=== PATIENT | male | born 1965 | race Caucasian/White ===

== ENCOUNTER → 2016-12-20 | Outpatient (CLI) | payer OTHER ==
--- NOTE | 2016-12-20 14:47 | XR ---
EXAMINATION TYPE: XR KUB DATE OF EXAM: 12/20/2016 2:35 PM CLINICAL HISTORY: Right-sided pain for 7 days. TECHNIQUE: Single supine KUB image of the abdomen is obtained. COMPARISON: None. FINDINGS: Scattered gas is seen in non-distended small bowel loops. Gas and fecal material is seen in non-distended colon. The amount of fecal material is prominent in the cecum and right colon. There i s no suspicious calcification appreciated. The lung bases are not included. The visualized osseous st ructures are intact. Entire pelvis is not included. Slight levoconvex scoliotic curvature is present. IMPRESSION: Overall nonobstructive bowel gas pattern. Suspect moderate proximal colonic fecal stasis.
== END ==
LOC: RADXRMAIN 14:21
PROVIDERS: ATTEND Internal Medicine
DX: R10.9 Unspecified abdominal pain (principal)
CPT/HCPCS: 74000

== ENCOUNTER → 2016-12-31 | Outpatient (CLI) | payer BC ==
--- NOTE | 2016-12-31 10:15 | CT ---
EXAMINATION TYPE: CT abdomen pelvis wo con DATE OF EXAM: 12/31/2016 COMPARISON: NONE HISTORY: Rt flank pain CT DLP: 561.9 mGycm Examination of the solid and hollow viscera is limited given the lack of contrast. FINDINGS: LUNG BASES: No evidence for nodule. No evidence for infiltrate. LIVER/GB: The gallbladder is unremarkable. No space-occupying hepatic lesion. PANCREAS: No pancreatic mass identified. No inflammatory process seen. SPLEEN: No evidence for splenomegaly. No intrasplenic lesions seen. ADRENALS: No adrenal nodules identified. No evidence for thickening. KIDNEYS: No evidence for renal mass. 2 mm nonobstructing calculus upper pole right kidney as well as a 8.5 mm nonobstructing calculus mid pole left kidney. No hydronephrosis. Urinary bladder not ideally distended at this time. BOWEL: Appendix has a normal appearance. No evidence of bowel obstruction. No inflammatory process. Lymph nodes: No evidence for adenopathy greater than 1 cm. Abdominal aorta: Atheromatous changes seen. No evidence for aneurysm. Genital organs: No significant abnormality. Other: No significant abnormality. IMPRESSION: NONOBSTRUCTING BILATERAL NEPHROLITHIASIS.
== END | disposition home or self-care (01) ==
LOC: RADCTMAIN 09:46
PROVIDERS: ATTEND Internal Medicine
DX: N20.0 Calculus of kidney (principal)
CPT/HCPCS: 74176

== ENCOUNTER 2018-07-17 07:54 | Day surgery (SDC) | payer BC ==
[2018-07-13 13:22] VITALS: BMI 31.0
[~2018-07-17 07:54] MED LIST: LACTATED RINGERS 1,000 ML IV SCH
[2018-07-17] MEDS ORDERED: LACTATED RINGERS 1,000 ML IV ONE (08:46)
[2018-07-17 08:47] VITALS: RESP 18; TEMP 97.2
[2018-07-17] MEDS ORDERED: LIDOCAINE 1% 20 ML VIAL (10MG/ML) FOR IV START INTRADERMA ONE (08:47)
[2018-07-17] MEDS ORDERED: PROPOFOL 10 MG/ML 20 ML VIAL IV ONE (09:53)
--- NOTE | 2018-07-17 10:23 | P.PCN ---
Date of Procedure: 07/17/18 Procedure(s) Performed: Procedure: Colonoscopy and biopsy. Preoperative diagnosis: Screening for neoplasia, patient has history of polyps. Postoperative diagnosis: 1. Sigmoid diverticulosis with no evidence of acute diverticulitis or strictures. 2. Diminutive polyp in the distal sigmoid biopsied but no large polyps or cancer. Preparation: HalfLytely prep. Sedation: Was provided by anesthesia. Brief clinical history: The patient is a 53-year-old male who is scheduled for this evaluation for screening for neoplasia age being his risk factor in addition to history of polyps. His last exam was 5 years ago. The patient has no abdominal complaints, bleeding or anemia. Procedure: With the patient on his left lateral decubitus position and after informed consent and adequate sedation, the perianal area was inspected and it did not show any fissures or fistulas. There were no masses felt on digital rectal examination. The Olympus CFH 190L video colonoscope was then inserted in the rectum in the usual fashion and advanced to the cecum. The mucosa appeared healthy. There was a diminutive polyp in the distal sigmoid which was biopsied but no large polyps or cancer. Several diverticular orifices were seen scattered in the sigmoid with no evidence of acute diverticulitis or strictures. I retroflexed the endoscope in the rectum before the endoscope was withdrawn. The patient tolerated the procedure well. Plan: The patient was reassured. Discussed dietary measures. He will follow up with you as planned and I recommended repeat exam in 5 years.
[2018-07-17 10:48] VITALS: BP 130/87; PULSE 81
== END 2018-07-17 11:18 | disposition home or self-care (01) ==
LOC: ORWHC2ENDO 07:54
DX: Z12.11 Encounter for screening for malignant neoplasm of colon (principal); K63.5 Polyp of colon; K57.30 Diverticulosis of large intestine without perforation or abscess without bleeding; Z86.010 Personal history of colon polyps; K21.9 Gastro-esophageal reflux disease without esophagitis; E78.5 Hyperlipidemia, unspecified; Z79.891 Long term (current) use of opiate analgesic; Z79.899 Other long term (current) drug therapy; Z88.6 Allergy status to analgesic agent
CPT/HCPCS: 88305; 45380; J2704

== ENCOUNTER → 2020-02-06 | Outpatient (CLI) | payer BC ==
--- NOTE | 2020-02-07 09:48 | MR ---
EXAMINATION TYPE: MR knee RT wo con DATE OF EXAM: 02/06/2020 COMPARISON: None HISTORY: Rt knee pain TECHNIQUE: Multiplanar, multisequence imaging of the right knee is performed without IV contrast. FINDINGS: MEDIAL MENISCUS: There is increased linear signal within the inferior aspect posterior horn medial me niscus compatible with a tear. This appears complex. Anterior and this appears intact. LATERAL MENISCUS: Anterior and posterior horns are intact without tear. CRUCIATE LIGAMENTS: The anterior and posterior cruciate ligaments are intact and unremarkable. COLLATERAL LIGAMENTS: Medial collateral ligament has increased signal present compatible with strain. This is greater along the posterior lateral portion. Lateral collateral ligament appears intact. EXTENSOR MECHANISM: Visualized quadriceps and patellar tendons are intact. There is fluid within the pretibial space anterior to the patellar tendon. EFFUSION: Minimal joint fluid is present. POPLITEAL CYST: No popliteal/garcia cyst. TRICOMPARTMENT SPACES: Joint spaces are preserved CARTILAGE: Cartilage appears intact. BONE MARROW SIGNAL: There is increased signal within the posterior medial tibial plateau compatible w ith contusion. OTHER: No additional significant abnormality is appreciated. IMPRESSION: 1. Contusion of the posterior medial tibial plateau. 2. There is strain of the medial collateral ligament with some tendinosis suspected of the lateral aguirre mstring tendons, likely the gracilus. 3. Complex tear posterior horn medial meniscus. 4. Fluid in the subcutaneous tissues anterior to the patellar tendon. Hematoma or bursitis could be c onsidered.
== END | disposition home or self-care (01) ==
LOC: RADMRIMAIN 11:33
PROVIDERS: ATTEND Orthopaedic Surgery
DX: S83.241A Other tear of medial meniscus, current injury, right knee, initial encounter (principal); S80.01XA Contusion of right knee, initial encounter

== ENCOUNTER 2020-05-02 09:23 | Day surgery (SDC) | payer BC ==
[2020-04-30 16:07] VITALS: BMI 32.1
--- NOTE | 2020-05-01 10:29 | HP ---
HISTORY AND PHYSICAL CHIEF COMPLAINT: Right knee pain. 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 He twisted it. He continues to have locking and giving way. He has tried medications in addition to an injection with minimal relief. He notes daily symptoms. PAST MEDICAL HISTORY: Significant for hypercholesterolemia and reflux disease. PAST SURGICAL HISTORY: Negative. CURRENT MEDICATIONS: Atorvastatin, ibuprofen, lansoprazole and [place]. He denies drug allergies. FAMILY HISTORY: Significant for cancer. SOCIAL HISTORY: Significant for previous tobacco use. 16 POINT REVIEW OF SYSTEMS: Otherwise is reviewed and is noncontributory. PHYSICAL EXAMINATION: On examination, the patient is approximately 5 foot 7, 198 pounds of mesomorphic habitus. HEENT: Exam is nonfocal. NECK: Supple. He has painless passive motion of the right hip. Straight leg raise is negative. Active motion right knee -6 to 125 degrees of flexion. He has mild effusion. He is tender about the medial patellar facet and medial joint line. Collaterals are stable, Juanis is negative, Debbie's elicits medial pain. His distal neurovascular exam appears intact in the right lower extremity. MRI report right knee 02/06/2020 shows evidence of a posterior horn medial meniscal tear. IMPRESSION: Internal derangement, right knee with symptomatic medial meniscal tear. RECOMMENDATIONS: I talked to the patient at length regarding his condition and treatment options. At this point, he is having persistent pain and mechanical symptoms after this acute injury despite conservative treatment. After thorough discussion, he opts to proceed with surgery. We will plan to proceed with arthroscopic evaluation with probable partial medial meniscectomy. We will likely perform that as an outpatient procedure. Risks and benefits were discussed at length in layman's terms. MMODL / IJN: [id number] /
[~2020-05-02 09:23] MED LIST changes: +DEXAMETHASONE SOD PHOSPHATE 4 MG/ML 1 ML VIAL IV ONE; +MIDAZOLAM 2 MG/2 ML VIAL IV PRN; +ONDANSETRON 4 MG/2 ML VIAL IVP ONE; +SCOPOLAMINE 1.5MG/72HR PATCH TRANSDERM ONE
[2020-05-02] MEDS ORDERED: LIDOCAINE 1% (10MG/ML) FOR IV START INTRADERMA ONE (09:50)
[2020-05-02] MEDS ORDERED: PHENYLEPHRINE-0.9% NACL SYG 1 MG/10 ML SYRINGE ONE (09:57)
[2020-05-02] MEDS ORDERED: PROPOFOL 10 MG/ML 20 ML VIAL IV ONE (09:57)
[2020-05-02] MEDS ORDERED: MIDAZOLAM 2 MG/2 ML VIAL ONE (09:57)
[2020-05-02] MEDS ORDERED: LIDOCAINE 1% INJ 10MG/ML (20 ML MDV) ONE (09:57)
[2020-05-02] MEDS ORDERED: SUCCINYLCHOLINE CHLORIDE 100 MG/5 ML SYR IV ONE (09:57)
[2020-05-02] MEDS ORDERED: KETOROLAC 15 MG/ML 1 ML VIAL ONE (09:57)
[2020-05-02] MEDS ORDERED: fentaNYL (PF) 50 MCG/ML 2 ML AMP ONE (09:57)
[2020-05-02] MEDS ORDERED: EPINEPHrine (PF) 1 ML in SODIUM CHLORIDE 0.9% IRRIGATIO 3,000 ML IRRIGATION ONE ×4 (10:01)
[2020-05-02 10:05] VITALS: RESP 16
--- NOTE | 2020-05-02 10:44 | P.OP ---
Date of Procedure: 05/02/20 Preoperative Diagnosis: Right knee internal derangement Postoperative Diagnosis: Right knee posterior medial meniscal tear/grade 3 chondral injury distal lateral portion medial femoral condyle Procedure(s) Performed: Right knee arthroscopic partial medial meniscectomy/medial femoral chondrectomy/microfracture medial femoral condyle Anesthesia: ALBAROA Surgeon: Raymond Kaur Estimated Blood Loss (ml): 10 Pathology: none sent Condition: stable Disposition: PACU Indications for Procedure: The patient's a 54-year-old male presents with progressive right knee pain and mechanical symptoms after a previous injury despite conservative measures. A discussion of the risks and benefits of operative intervention versus continued conservative measures was made with patient. He opted to proceed with surgery. Operative risks to include infection, neurovascular injury, development of blood clots, possible incomplete resolution of symptoms, possible worsening symptoms and need for subsequent procedures was discussed. Informed consent was obtained. Operative Findings: As below Description of Procedure: The patient was brought to the operating room, and after induction of general anesthesia examined the right knee. Collaterals were stable, Juanis was negative, and posterior drawer was negative. The right lower extremity was prepped and draped in a normal fashion. A superior lateral portal was made through a 3 mm skin incision superior and lateral to the patella. This was used for outflow. A lateral portal was made through a 5 mm vertical skin incision lateral to the patella tendon above the joint line. Diagnostic arthroscopy was performed. On inspection of the medial compartment, a complex tear involving the posterior horn of the medial meniscus was noted in the white-red junction. This was not amenable to repair.. This was debrided back to stable base with straight baskets and a motorized shaver. A corresponding grade 3 chondral injury was noted involving the distal lateral portion of the medial femoral condyle. There was a loose chondral flap debrided back to stable base motorized shaver. This lesion measured approximately 8 x 12 mm. A power pick was then used to perform microfracture breeching the subchondral surface down to the bone marrow elements. On inspection of the notch, the anterior cruciate ligament appeared to be intact. On inspection of the lateral compartment no significant cartilage or meniscal pathology was noted. On inspection of the patellofemoral articulation, there was some chondral fibrillation however no loose chondral fragments.. The gutters were clear debris. The knee was then thoroughly irrigated. The portals were closed with Steri-Strips. A sterile dressing was applied in addition to a compression stocking. The patient was awoken from general anesthesia and transferred to recovery room in good condition. Blood loss was estimated at 10 mL. No complications were incurred.
[2020-05-02 10:51] VITALS: TEMP 97
[2020-05-02] MEDS: HYDROmorphone 0.5 MG/0.5 ML SYRINGE IVP PRN ×4 (10:55→11:17)
[2020-05-02] MEDS ORDERED: diphenhydrAMINE 50 MG/ML 1 ML VIAL IVP ONE (11:17)
[2020-05-02] MEDS ORDERED: HYDROcodone/APAP 10-325MG 1 EACH TAB ONE (11:51)
[2020-05-02] MEDS ORDERED: HYDROcodone/APAP 10-325MG 1 EACH TAB PO ONE ×3 (11:58→12:18)
[2020-05-02 12:09] VITALS: PULSE 66
[2020-05-02 12:29] VITALS: BP 128/70
== END 2020-05-02 13:10 | disposition home or self-care (01) ==
LOC: OR 09:23
PROVIDERS: ATTEND Orthopaedic Surgery
DX: S83.241A Other tear of medial meniscus, current injury, right knee, initial encounter (principal); S83.31XA Tear of articular cartilage of right knee, current, initial encounter; X50.1XXA Overexertion from prolonged static or awkward postures, initial encounter; E78.00 Pure hypercholesterolemia, unspecified; K21.9 Gastro-esophageal reflux disease without esophagitis; Z80.9 Family history of malignant neoplasm, unspecified; E78.5 Hyperlipidemia, unspecified; Z79.1 Long term (current) use of non-steroidal anti-inflammatories (NSAID); Z79.891 Long term (current) use of opiate analgesic; Z79.899 Other long term (current) drug therapy; Z88.6 Allergy status to analgesic agent
CPT/HCPCS: 29881; 29879; J2250; J1200; J1100; J0690; J2405; J0171; J2001; J3010; J1885; J2370; J0330; J2704; J1170

== ENCOUNTER 2020-09-12 17:17 | Emergency (ER) | payer BC ==
[2020-09-12 17:58] VITALS: BP 164/93; PULSE 116; TEMP 99.4
--- NOTE | 2020-09-12 18:21 | XR ---
EXAMINATION TYPE: XR chest 2V DATE OF EXAM: 09/12/2020 COMPARISON: 11/24/2009 HISTORY: Short of breath TECHNIQUE: 2 views FINDINGS: Heart and mediastinum are normal. There is no pleural effusion. Costophrenic angles are simin ar. There are no hilar masses. There is some increased density in the periphery of the right midlung field. IMPRESSION: Minimal right side pneumonia is new compared to old exam. Normal heart.
[2020-09-12 20:29] VITALS: RESP 20
--- NOTE | 2020-09-12 20:48 | ED ---
URI HPI - General Chief Complaint: Upper Respiratory Infection Stated Complaint: Upper Respiratory Issue Time Seen by Provider: 09/12/20 20:17 Source: patient, RN notes reviewed Mode of arrival: ambulatory Limitations: no limitations - History of Present Illness Initial Comments: Patient is a 55-year-old male with no significant past no history complaining of cough and chest congestion. He noted that this been going on since Tuesday. He noted that he has not been tested for Covid. He denied any respiratory distress chest pain. He was in no apparent distress, he was well-appearing well-hydrated while sitting up in bed during exam and interview. She denied any chest pain first breath headache nausea vomiting diarrhea constipation fever fatigue chills. - Related Data Home Medications Medication Instructions Recorded Confirmed Atorvastatin Calcium [Lipitor] 20 mg PO HS 07/13/18 04/30/20 HYDROcodone/APAP 10-325MG [[place] 1 tab PO BID 07/13/18 04/30/20 10-325] Lansoprazole 30 mg PO DAILY 04/30/20 04/30/20 PARoxetine [Paxil] 10 mg PO QAM 04/30/20 04/30/20 Previous Rx's Medication Instructions Recorded predniSONE 50 mg PO DAILY #5 tab 09/12/20 Allergies Allergy/AdvReac Type Severity Reaction Status Date / Time ibuprofen [From Motrin] AdvReac Abdominal Verified 05/02/20 09:37 Pain Review of Systems ROS Statement: Those systems with pertinent positive or pertinent negative responses have been documented in the HPI. ROS Other: All systems not noted in ROS Statement are negative. Past Medical History Past Medical History: GERD/Reflux, Hyperlipidemia Additional Past Medical History / Comment(s): chronic back and neck pain History of Any Multi-Drug Resistant Organisms: None Reported Past Surgical History: Orthopedic Surgery Additional Past Surgical History / Comment(s): left trigger thumb, rt rotator c uff, rt wrist surgery to repair cut tendon Past Anesthesia/Blood Transfusion Reactions: No Reported Reaction Past Psychological History: Anxiety Smoking Status: Former smoker - Past Family History Mother Family Medical History: No Reported History General Exam Limitations: no limitations General appearance: alert, in no apparent distress Head exam: Present: atraumatic, normocephalic, normal inspection Eye exam: Present: normal appearance, PERRL, EOMI. Absent: scleral icterus, conjunctival injection, periorbital swelling Neck exam: Present: normal inspection. Absent: tenderness, meningismus, lymphadenopathy Respiratory exam: Present: normal lung sounds bilaterally. Absent: respiratory distress, wheezes, rales, rhonchi, stridor Cardiovascular Exam: Present: regular rate, normal rhythm, normal heart sounds. Absent: systolic murmur, diastolic murmur, rubs, gallop, clicks GI/Abdominal exam: Present: soft, normal bowel sounds. Absent: distended, tenderness, guarding, rebound, rigid Extremities exam: Present: normal inspection, full ROM, normal capillary refill. Absent: tenderness, pedal edema, joint swelling, calf tenderness Back exam: Present: normal inspection Neurological exam: Present: alert, oriented X3, CN II-XII intact Psychiatric exam: Present: normal affect, normal mood Skin exam: Present: warm, dry, intact, normal color. Absent: rash Course Vital Signs 09/12/20 09/12/20 09/12/20 17:55 20:27 20:29 Temperature 99.4 F Pulse Rate 116 H Respiratory 16 20 20 Rate Blood Pressure 164/93 O2 Sat by Pulse 99 Oximetry Medical Decision Making - Medical Decision Making 55-year-old man complaining of Covid like symptoms since Tuesday. Covid test, chest x-ray ordered. Covid test positive. Patient does not meet criteria for monoclonal antibody therapy as he does not have any hypertension, cardiovascular disease or COPD. And his BMI is 20. Case discussed with Dr. Kelsey, patient can discharge home with conservative management with vitamin C, zinc, increase fluids and rest. - Lab Data Lab Results 09/12/20 Range/Units 18:01 Coronavirus (PCR) Detected A (Not Detectd) - Radiology Data Radiology results: report reviewed, image reviewed Minimal right-sided pneumonia is new compared to old exam. Normal heart. Disposition Clinical Impression: COVID-19, Pneumonia due to COVID-19 virus Disposition: HOME SELF-CARE Condition: Stable Instructions (If sedation given, give patient instructions): Upper Respiratory Infection (ED), Coronavirus Disease 2019 (COVID-19) Additional Instructions: Please return to the Emergency Department if symptoms worsen or any other concerns. Per CDC guidelines quarantine for 10-14 days from onset of symptoms. Take vitamin C, zinc, daily for prophylaxis. Increase oral fluids a Take prednisone as prescribed. Follow-up primary care soon as possible. Take aoms-xal-osbyhra anti-inflammatories for any fevers muscle aches or pains. Is patient prescribed a controlled substance at d/c from ED?: No Referrals: Priscilla Virgen MD [Primary Care Provider] - 1-2 days Time of Disposition: 20:48
== END 2020-09-12 21:00 | disposition home or self-care (01) ==
LOC: EC 17:17
DX: U07.1 COVID-19 (principal); J12.82 Pneumonia due to coronavirus disease 2019; K21.9 Gastro-esophageal reflux disease without esophagitis; E78.5 Hyperlipidemia, unspecified; F41.9 Anxiety disorder, unspecified; Z87.891 Personal history of nicotine dependence
CPT/HCPCS: 71046; 87635; 99283

== ENCOUNTER → 2024-12-19 | Outpatient (CLI) | payer BC ==
[2024-12-19 15:34] VITALS: BP 146/85; PULSE 78; RESP 16; TEMP 97.8
--- NOTE | 2024-12-19 16:44 | P.SLEEP ---
History of Present Illness DATE: 12/19/2024 CONSULTATION/NEW PATIENT EVALUATION HISTORY OF PRESENT ILLNESS/SLEEP-WAKE EVALUATION: 59-year-old gentleman had be en evaluated in the sleep center for obstructive sleep apnea hypopnea syndrome. Patient has been diagnosed with severe obstructive sleep apnea by [employer], apnea-hypopnea index 47.3 with oxygen desaturation to 73%. Patient was started on treatment with AutoPap. I checked PAP unit. Usage is 90% of the time, average 6 hours per night. Range of the pressure 5 to 14 cm of water, average 13.5 centimeters of water. SLEEP SCHEDULE: Usually sleep schedule 910 PM to 6 AM on working days and from 912 midnight until 78 AM. FALLING ASLEEP: No problems with falling asleep. DURING SLEEP: Patient wakes up from sleep up to 4 times with 4 episodes of nocturia. No history of hypnogogical hallucinations, sleep paralysis, or cataplexy. DURING THE DAY/WAKE STATE: In the morning patient wake up tired, has difficulties to pay attention, has problems with memory, concentration, irritability and anxiety. [place] sleepiness scale is increased to 12. Normally patient does not take naps. He drinks up to 3 coffee a day. PAST MEDICAL HISTORY: Hypertension, hyperlipidemia, acid reflux, anxiety. PAST SURGICAL HISTORY: Right knee surgery for meniscus problems. MEDICATIONS: Please see below. SOCIAL HISTORY: Please see below. FAMILY HISTORY: Please see below. REVIEW OF SYSTEMS: Multiple awakenings from sleep, sleepiness during the day. No fevers. No double vision. No recent chest pain. No shortness of breath. No abdominal pain. No bleeding episodes. No blood in urine. No seizure episodes. PHYSICAL EXAMINATION: GENERAL: A pleasant patient without any distress. VITAL SIGNS: Please see below, weight 204 pounds, BMI 31.4. HEENT: PERRLA, EOMI. Evaluation of oropharynx showed tongue protrudes midline, low position of soft palate Mallampati 4, retrognathia 2 mm, restriction of na garrett breathing. NECK: Supple. No JVD. Thyroid is not palpable. 17 inches in circumference. LUNGS: Clear to percussion and to auscultation. Good air exchange. No wheezing or rhonchi. HEART: S1, 7 L/min, which is a normal range. Apnea-hypopnea index 21.6 and that include obstructive apnea index 7.9 and central sleep apnea index 7.1. Range of the pressure in regular. No murmurs, gallops or rubs. ABDOMEN: Soft and nontender. Bowel sounds are present. No organomegaly appreciated. EXTREMITIES: No clubbing or cyanosis. SNAP SHEARER: Awake, alert, and oriented x3. Cranial nerves 2 to 7 intact. There is no fasciculation or atrophy noted. No focal deficits observed. ASSESSMENT: 1. Severe obstructive sleep apnea hypopnea syndrome by results of home sleep apnea test which was done in another institution with apnea-hypopnea index 47.3 and oxygen desaturation to 73%. Extremely low position of soft palate, restriction of nasal breathing, wide neck. Patient continues to have symptoms of excessive daytime sleepiness and wake up from sleep reading from machine showed increased apnea-hypopnea index significantly increased to 21.6 which include obstructive and central sleep apneas. Patient demonstrated good compliance with treatment, benefiting from treatment. 2. Hypertension. 3. Hyperlipidemia. 4. History of anxiety. 5 acid reflux. 6 . Status post right knee surgery for meniscus problems. PLAN: 1. Patient will continue to use AutoPap treatment every night for the whole night. 2. I increased range of the pressure in AutoPap unit to 5-18 cm of water. 3. Preferable position during sleep on the side. 4. No driving if patient feels any sleepiness. Patient is aware of civil and criminal liability for unsafe driving. 5. Sleep hygiene with regular sleep time for at least 7.5-8 hours. 6. Watching weight. 7. Follow-up visit in 1 months. If patient will continue to have significant abnormalities of respiration while using AutoPap we will consider PAP titration sleep study. Thank you very much for referring this patient for consultation. Sincerely, Vikas Manjarrez MD, PhD, FAASM. Diplomat of [place] [employer], Sleep Medicine Board by [place] [employer] [place] [employer] [facility] [place] cc: Nicole Gamble MD Past Medical History Past Medical History: Diabetes Mellitus, GERD/Reflux, Hyperlipidemia, Hypertension, Sleep Apnea/CPAP/BIPAP Additional Past Medical History / Comment(s): chronic back and neck pain History of Any Multi-Drug Resistant Organisms: None Reported Past Surgical History: Orthopedic Surgery Additional Past Surgical History / Comment(s): left trigger thumb, rt rotator cuff, rt wrist surgery to repair cut tendon, RT KNEE Past Anesthesia/Blood Transfusion Reactions: No Reported Reaction Past Psychological History: Anxiety Smoking Status: Former smoker Past Alcohol Use History: Occasional Additional Past Alcohol Use History / Comment(s): quit smoking 1995, smoked 1ppd from teens Past Drug Use History: None Reported - Past Family History Mother Family Medical History: No Reported History Father Family Medical History: Hyperlipidemia, Hypertension Additional Family Medical History / Comment(s): SNORING Medications and Allergies Home Medications Medication Instructions Recorded Confirmed Type Atorvastatin Calcium [Lipitor] 20 mg PO HS 07/13/18 12/19/24 History HYDROcodone/APAP 10-325MG [[place] 1 tab PO BID 07/13/18 12/19/24 History 10-325] Lansoprazole 30 mg PO DAILY 04/30/20 12/19/24 History PARoxetine [Paxil] 10 mg PO QAM 04/30/20 12/19/24 History predniSONE 50 mg PO DAILY #5 tab 09/12/20 Rx busPIRone HCL 10 mg PO DAILY 12/19/24 12/19/24 History Allergies Allergy/AdvReac Type Severity Reaction Status Date / Time ibuprofen [From Motrin] AdvReac Abdominal Verified 05/02/20 09:37 Pain Physical Exam Vitals: Vital Signs Temp Pulse Resp BP Pulse Ox 12/19/24 15:33 97.8 F 78 16 146/85 96 Intake and Output 12/19/24 12/19/24 12/19/24 06:59 14:59 22:59 Other: Weight 92.533 kg Sleep Note - Sleep Data ESS Total: 12 - Sleep Note Sleep Note: Temperature: 97.8 F Pulse Rate: 78 Respiratory Rate: 16 Blood Pressure: 146/85 SpO2: 96 Height: 5 ft 7.5 in Weight: 92.533 kg BMI: Neck Circumference: 17
== END ==
LOC: 3 N SLEEP 15:03
PROVIDERS: ATTEND Internal Medicine
DX: G47.33 Obstructive sleep apnea (adult) (pediatric) (principal); I10 Essential (primary) hypertension; E78.5 Hyperlipidemia, unspecified; K21.9 Gastro-esophageal reflux disease without esophagitis; Z96.651 Presence of right artificial knee joint; F41.9 Anxiety disorder, unspecified; Z99.89 Dependence on other enabling machines and devices; Z87.891 Personal history of nicotine dependence; Z88.6 Allergy status to analgesic agent
CPT/HCPCS: 99211